=== PATIENT | female | born 1990 | race Caucasian/White ===

== ENCOUNTER 2017-02-17 16:00 | Outpatient (CLI) | payer OTHER ==
[~2017-02-17 16:00] MED LIST: ACET-1256 PO; ALBUAER2 INH; PRENTAB26 PO
[2017-02-17 17:31] LABS: HEMATOCRIT 32.5 % (37-47); MEAN CELL VOLUME 76.5 fL (80-100); MEAN CORPUSCULAR HEMOGLOBIN 23.8 pg (25-34); MEAN CORPUSCULAR HGB CONC 31.1 g/dl (32-36); MEAN PLATELET VOLUME 10.3 fL (7.4-10.4); PLATELET COUNT 296 K/uL (130-400); RED BLOOD COUNT 4.25 M/uL (4.2-5.4); WHITE BLOOD COUNT 10.69 K/uL (4.8-10.8)
[2017-02-17 18:10] LABS: ALT/SGPT 13 U/L (12-78); AST/SGOT 10 U/L (15-37); BLOOD UREA NITROGEN 7 mg/dl (7-18); CALCIUM 8.2 mg/dl (8.5-10.1); CARBON DIOXIDE 25 mmol/L (21-32); CHLORIDE 106 mmol/L (98-107); GLUCOSE 84 mg/dl (70-99); POTASSIUM 3.9 mmol/L (3.5-5.1); SODIUM 137 mmol/L (136-145)
[2017-02-17 18:13] LABS: ALB/GLOB RATIO 0.6 (0.9-2); ALKALINE PHOSPHATASE 117 U/L (45-117)
== END 2017-02-17 19:40 | disposition home or self-care (01) ==
LOC: C.LD 16:00 → C.OPB 16:00
PROVIDERS: ATTEND Obstetrics & Gynecology
DX: O32.1XX0 Maternal care for breech presentation, not applicable or unspecified (principal); O99.513 Diseases of the respiratory system complicating pregnancy, third trimester; J45.909 Unspecified asthma, uncomplicated; Z3A.38 38 weeks gestation of pregnancy

== ENCOUNTER 2017-02-25 22:57 | Inpatient (IN) | payer OTHER ==
[~2017-02-25] VITALS: Ht 165.1 cm; Wt 82.0 kg
[~2017-02-25 22:57] MED LIST changes: -PRENTAB26 PO
[2017-02-25] MEDS ORDERED: LACTATED RINGER'S 1000ML 1,000 ML IV SCH (23:23)
[2017-02-25] MEDS ORDERED: LACTATED RINGER'S 1000ML 1,000 ML IV PRN (23:23)
[2017-02-25 23:50] LABS: HEMATOCRIT 33.5 % (37-47); MEAN CELL VOLUME 74.8 fL (80-100); MEAN CORPUSCULAR HEMOGLOBIN 22.8 pg (25-34); MEAN CORPUSCULAR HGB CONC 30.4 g/dl (32-36); MEAN PLATELET VOLUME 10.6 fL (7.4-10.4); PLATELET COUNT 285 K/uL (130-400); RED BLOOD COUNT 4.48 M/uL (4.2-5.4); WHITE BLOOD COUNT 11.16 K/uL (4.8-10.8)
[2017-02-25 23:57] VITALS: Ht 165.1 cm; Wt 82.0 kg
[2017-02-26] MEDS ORDERED: CEFAZOLIN SOD 2000 MG in DEXTROSE 5% 50ML IV SCH (06:00)
[2017-02-26] MEDS ORDERED: BUPIVACAINE 0.25% 30 ML VIAL ONE (07:59)
[2017-02-26] MEDS ORDERED: EpHEDrine SULFATE INJ 50 MG/ML AMP ONE (08:00)
[2017-02-26] MEDS ORDERED: FENTANYL CITRATE INJ 50 MCG/1 ML 2 ML VIAL ONE (08:00)
[2017-02-26] MEDS ORDERED: FENTANYL 2MCG/ML ROPIV 1.25MG/ML 100ML BAG EPI ONE (08:00)
[2017-02-26] MEDS ORDERED: NALOXONE HCL INJ 1 MG in SODIUM CHLORIDE 0.9% 1000ML 1,000 ML IV PRN (09:21)
[2017-02-26] MEDS ORDERED: LACTATED RINGER'S 1000ML 500 ML IV PRN (09:21)
[2017-02-26] MEDS ORDERED: DiphenhydrAMINE HCL 50 MG/ML VIAL IV PRN (09:30)
[2017-02-26] MEDS ORDERED: FENTANYL 2MCG/ML ROPIV 1.25MG/ML 100ML BAG EPI PRN ×2 (09:30→10:00)
[2017-02-26] MEDS ORDERED: EpHEDrine SULFATE INJ 50 MG/ML AMP IV PRN (09:30)
[2017-02-26] MEDS ORDERED: ONDANSETRON INJ 2 MG/ML 2 ML VIAL IV PRN (09:30)
[2017-02-26] MEDS ORDERED: NALOXONE HCL INJ 0.4 MG/1 ML VIAL/CARP IV PRN (09:30)
[2017-02-26] MEDS ORDERED: NALBUPHINE HCL INJ 10 MG/ML AMP IV PRN (09:30)
[2017-02-26] MEDS ORDERED: NURSING VERBAL MED ORDER ONE ×2 (10:00→11:45)
[2017-02-26] MEDS ORDERED: [UNRECOGNIZED DRUG - OTHER] INH PRN (10:15)
[2017-02-26] MEDS ORDERED: ALBUTEROL INH PRN (10:15)
[2017-02-26] MEDS ORDERED: OXYTOCIN 30 UNITS/500ML NSS IV ONE (11:28)
[2017-02-26] MEDS ORDERED: HYDROCORTISONE ACETATE 25 MG SUPP PR PRN (12:00)
[2017-02-26] MEDS ORDERED: OXYCODONE/ACETAMINOPHEN 5-325 TAB PO PRN (12:00)
[2017-02-26] MEDS ORDERED: LANOLIN OINT EXT PRN ×2 (12:00)
[2017-02-26] MEDS ORDERED: MEASLES, MUMPS & RUBELLA VIRUS VIAL SQ. ONE (12:00)
[2017-02-26] MEDS ORDERED: DIPHTHERIA/TETANUS/PERTUSSIS 0.5 ML SYR/VIAL IM. ONE (12:00)
[2017-02-26] MEDS ORDERED: BENZOCAINE 20% AER SPR 82.5 GM CAN EXT PRN (12:00)
[2017-02-26] MEDS ORDERED: ACETAMINOPHEN 325 MG TAB PO PRN (12:00)
[2017-02-26] MEDS ORDERED: OXYTOCIN 30 UNITS/500ML NSS IV PRN (12:00)
[2017-02-26] MEDS ORDERED: SUPERCREAM 0.870 % 15GM JAR EXT PRN (12:00)
--- NOTE | 2017-02-26 12:16 | DELIVERY SUMMARY ---
DATE OF OPERATION: 02/26/2017 DATE OF DELIVERY: 02/26/2017 TIME OF DELIVERY OF BABY: 11:23 a.m. TIME OF DELIVERY OF PLACENTA: 11:41 a.m. DETAILS OF DELIVERY: The patient was found to be fully dilated and desired to push. She pushed for only once and delivered the head without difficulty. Shoulders were delivered with minimal traction. There was a loose nuchal cord around the neck x1 which was reduced. The baby was handed off to the mother. Mouth and nose were suctioned. Meconium stained fluid was noted. But the baby was vigorously crying and moving . Cord was clamped x2 and cut at 1 minute. It was a 3-vessel cord. The vagina and perineum were checked for laceration. There was a second degree perineal laceration at the posterior fourchette. Rectal exam was done and good sphincter tone was noted. It was confirmed to be second degree. Gloves were changed. This was repaired with 2-0 Vicryl in a running locked fashion bringing the perineal body muscles together and the skin in subcuticular fashion. Excellent hemostasis was achieved. The placenta was found to be in the vagina delivered spontaneously intact and complete. Uterus was explored and found to be empty. The fundus was firm. The lower segment was cleared of all clots and debris. EBL was 150. Mom and baby tolerated the procedure well. Sponge, lap, needle and instrument count was correct x2. The baby was a viable female infant, Apgars 8/9. No complications happened and I was present during the whole procedure. I attest to the content of the Intraoperative Record and any orders documented therein. Any exceptions are noted below. MTDD
--- NOTE | 2017-02-26 12:56 | Anesthesia Procedure Note ---
Anesthesia Epidural Removal Nt Date & Time Feb 26, 2017 at 12:55 Vital Signs Pain Intensity: 0.0 Notes Mental Status: alert / awake / arousable, participated in evaluation Nausea / Vomiting: adequately controlled Pain: adequately controlled Airway Patency, RR, SpO2: stable & adequate BP & HR: stable & adequate Hydration State: stable & adequate Neuraxial Anesthesia: was administered, sensory block is resolving Anesthetic Complications: no major complications apparent, pt satisfied with anesthetic care Epidural: removed without complications, with tip intact
[2017-02-26 14:30] VITALS: BP 110/69; PULSE 86; TEMP 37
[2017-02-26] MEDS: IBUPROFEN 600 MG TAB PO PRN ×3 (14:49→23:40)
[2017-02-26 15:25] VITALS: BP 131/72; PULSE 96; TEMP 37
[2017-02-26 20:40] VITALS: BP 151/80; PULSE 109; TEMP 36.7; O2SAT 98
[2017-02-26] MEDS: DOCUSATE SODIUM 100 MG CAP PO SCH (20:42)
[2017-02-26 23:35] VITALS: BP 121/67; PULSE 87; TEMP 37; O2SAT 98
[2017-02-27 04:05] VITALS: BP 132/72; PULSE 84; TEMP 36.6; O2SAT 97
[2017-02-27] MEDS: IBUPROFEN 600 MG TAB PO PRN ×3 (04:05→13:30)
[2017-02-27 06:28] LABS: HEMATOCRIT 30.5 % (37-47)
[2017-02-27 07:38] VITALS: BP 124/74; PULSE 90; TEMP 36.7; O2SAT 98
[2017-02-27] MEDS ORDERED: MTR600X PO (07:41)
--- NOTE | 2017-02-27 07:43 | Discharge Instructions ---
Discharge Instructions Date of Service Feb 27, 2017. Admission Reason for Admission: Check Labor Discharge Discharge Diagnosis / Problem: term delivered Discharge Goals Goal(s): Routine recovery after delivery Activity Recommendations Activity Limitations: as noted below Lifting Limitations: no more than 10 pounds Exercise/Sports Limitations: gradually increase as tolerated May Resume Sexual Activity: after follow-up appointment Shower/Bathe: no limitations, tomorrow Driving or Machine Use: resume 3 days after discharge . Instructions / Follow-Up Instructions / Follow-Up ACTIVITY RECOMMENDATIONS: * Gradual return to full activity over the next 2-3 weeks. * No lifting - nothing heavier than baby over the next 2-3 weeks. * Do not engage in vigorous exercise, sexual activity or sports until cleared by your physician. * Do not drive or operate any motorized equipment until cleared by your physician. * You may shower/bathe daily. BREAST CARE: If you are not breast feeding: * Wear a supportive bra 24 hours a day for one to two weeks. * Avoid stimulating your breasts and nipples as much as possible during the first few weeks after delivery. * When taking a shower, have the warm water hit your back, not breasts. * When your breasts feel full, apply ice packs. Usually three to four times a day helps ease the discomfort. * Take a mild pain medication (Tylenol/Motrin) when you are uncomfortable. If breast feeding: * Use breast milk to lubricate nipples. Lansinoh cream may be used for sore nipples. You do not need to remove cream prior to breast feeding. If using a different brand of cream, check the label for directions regarding removal of cream prior to nursing. * Wear a supportive bra. * If having problems with breasts or breast feeding, call a quantitative consultant or your health care provider. EPISIOTOMY CARE: After delivery, if you have an episiotomy (stitches), the following steps will ease discomfort and aid healing. * For the first 24 hours after delivery, place ice packs next to your episiotomy to help reduce swelling. * After the first 24 hour-period, sitz baths, either portable or in the tub, are suggested. A shower with a shower arm sprayed over the episiotomy may be comforting. * Hoa care should be done after each voiding and bowel movement. Squirt warm water from a plastic bottle over the perineum (region of the body between the anus and urinary opening) and pat dry. * Use Dermoplast to ease discomfort. Shake container. [place] directly over the episiotomy. * Place a Tucks on a clean sanitary pad next to your episiotomy. OVER THE COUNTER MEDICATION: * For discomfort or pain, you may use Acetaminophen (Tylenol), Ibuprofen (Advil ), or Naproxen (Aleve) following the package directions. * For constipation you may use Colace following the package directions. SPECIAL CARE INSTRUCTIONS: When you are discharged from the hospital, it is important for you to follow the instructions listed below: * During the first week at home, you should be able to care for yourself and your baby. In addition, the usual light household activities are encouraged. * Limit your activities to the way you feel. Do not try to clean the house or move furniture. Be sensible. * If you actively engage in sports and have done so up until the time of your delivery, you may resume these activities as soon as you feel able. This may take up to one month or even longer. Use good judgment. * Continue to take your vitamins for at least six weeks after the of your baby. * Your diet need not be limited unless you were on a special diet before your delivery. Breast-feeding mothers need around 2500 calories per day and at least 64-80 ounces of fluid per day (8 to 10 glasses). * You should eat foods from the four major food groups. Crash diets or fad diets are to be avoided. Eating lean meats, fresh fruits and vegetables, low-fat dairy products, high fiber foods and a regular exercise program, will help you get back to your pre- weight without putting your health at risk. * Constipation is sometimes a problem after delivery. Take a mild laxative as needed. If breast feeding, Milk of Magnesia is acceptable to use. You may use a suppository or Fleets enema if no episiotomy. * A daily shower or tub bath is suggested. Be sure to thoroughly and gently dry the perineum. * A bloody vaginal discharge will usually continue until around four weeks post . A small amount of bleeding may continue for as long as six weeks. Vaginal discharge changes from the bright red bleeding after delivery to pink then brownish and finally yellowish-pink before becoming white and disappearing. * Bleeding may increase with activity. Your first period may come in 4-8 weeks. If you are breast feeding, your period may be delayed even longer. * Blaine (sex) can begin whenever both you and your partner feel comfortable and do not have any form of genital infection. It is recommended that you wait until after your return appointment and discuss with your physician. If you have questions, please talk to your health care practitioner. A condom should be used to prevent infection and . * Foreplay, gentle intercourse and lubrication is very important the first several times to prevent pain. A water-based lubricant such as K-Y jelly or Astroglide may be used. * Tampons may be used six weeks after delivery. * Douching should be avoided for 6 weeks after delivery. * If you have RH negative blood and your baby is RH positive, you will receive RHOGAM by injection prior to discharge. The nurse will give you a card to keep with you that has the date and place that you received RHOGAM after delivery. * During your care, you had a Rubella screen done to check for the presence of rubella antibodies in your blood. If your test was negative, you will receive a Rubella vaccine prior to discharge. This vaccine may cause a fever, soreness at the injection site and flu-like symptoms. If these symptoms persist, notify your health care practitioner. is not advised for three months after a Rubella vaccine. There is a higher chance of having a baby with defects if conceived within three months of getting the vaccine. * If you were discharged 24 hours from delivery or before 48 hours: Visiting nurses will come to your home 48 hours after discharge to assess you and your baby. The visiting nurse will meet with you while you are in the hospital to arrange a time and get directions to your home. * Verbalizes understanding of car seat law as reviewed with patient nursing. * Car Seat hand-out given and reviewed with patient by nursing. * Shaken baby information reviewed with patient by nursing. Call you doctor if: * Heavy bleeding (saturating several pads an hour) or passing clots the size of your fist. * A fever >101 degrees F (38.3 degrees C) on two occasions four hours apart and/or chills. * Unusual pain in the pelvic or vaginal areas. * "Baby Blues" lasting longer than two weeks. If you have any questions or concerns, call your health care practitioner at . FOLLOW-UP VISIT: * Please call the office at to schedule a 6 week examination. It is important you keep this appointment. * It is important for you to make arrangements for either yearly or twice yearly check-ups thereafter. Current Hospital Diet Patient's current hospital diet: Regular OB Diet Discharge Diet Recommended Diet: Regular OB Diet Pending Studies Studies pending at discharge: no Medical Emergencies . Who to Call and When: Medical Emergencies: If at any time you feel your situation is an emergency, please call 911 immediately. . Non-Emergent Contact Non-Emergency issues call your: Primary Care Provider . . "Provider Documentation" section prepared by Porfirio Shaffer. . VTE Core Measure Inpt VTE Proph given/why not?: Treatment not indicated
--- NOTE | 2017-02-27 07:44 | OB/GYN Progress Note ---
DIRECTOR OF STRATEGY & MOBILE Progress Note Date of Service Feb 27, 2017. Subjective conversation w/ patient, physical exam Ambulation: ambulating normally Voiding: no voiding problems Passing Gas: Yes Diet Tolerance: Regular Diet Lochia: Small Feeding Type: Breast Feeding Objective Vital Signs Date Time Temp Pulse Resp B/P (MAP) Pulse Ox O2 Delivery O2 Flow Rate FiO2 02/27/17 04:05 36.6 84 18 132/72 (92) 97 Room Air 02/26/17 23:35 37.0 87 18 121/67 (85) 98 Room Air 02/26/17 23:35 Room Air 02/26/17 20:40 36.7 109 18 151/80 (103) 98 Room Air 02/26/17 15:25 Room Air 02/26/17 15:25 37.0 96 18 131/72 (91) Room Air 02/26/17 14:30 37.0 86 18 110/69 (83) Room Air Physical Exam General Appearance: WELL-APPEARING, NO APPARENT DISTRESS Abdomen: non tender, soft Fundus: Firm Extremities: non-tender, normal inspection, no pedal edema Laboratory Results Last 24 Hours Test 02/27/17 05:52 Hemoglobin 9.3 g/dL Hematocrit 30.5 % Assessment and Plan Post- Continue Routine Care: discharged
[2017-02-27] MEDS ORDERED: PRENATAL VITAMIN TAB PO SCH (08:00)
[2017-02-27] MEDS ORDERED: FERROUS SULFATE 325 MG TAB PO SCH (08:00)
[2017-02-27] MEDS: DOCUSATE SODIUM 100 MG CAP PO SCH (09:14)
[2017-02-27] MEDS ORDERED: INFLUENZA ADMINISTRATION CHARGE ONE (13:00)
[2017-02-27] MEDS ORDERED: INFLUENZA VIRUS QUAD VACCINE 0.5 ML SYR IM. ONE (13:00)
[2017-02-27 14:25] VITALS: BP_DIAS 74; PULSE 90; TEMP 36.7
[2017-02-27] MEDS ORDERED: BISACODYL 5 MG TABEC PO SCH (20:00)
[2017-02-28] MEDS ORDERED: BISACODYL 10 MG SUPP PR PRN (07:00)
== END 2017-02-27 14:35 | disposition home or self-care (01) | DRG 775 ==
LOC: C.LD 22:57 → C.OPB 22:57 → C.LD 23:25 → C.OBG 02-26 14:22
PROVIDERS: ADMIT Obstetrics & Gynecology; ATTEND Obstetrics & Gynecology
PROC: 10E0XZZ Delivery of Products of Conception, External Approach (ICD-10-PCS; principal; 2017-02-26)
PROC: 0KQM0ZZ Repair Perineum Muscle, Open Approach (ICD-10-PCS; principal; 2017-02-26)
DX: O69.81X0 Labor and delivery complicated by cord around neck, without compression, not applicable or unspecified (principal); O70.1 Second degree perineal laceration during delivery; Z37.0 Single live birth; Z3A.39 39 weeks gestation of pregnancy